=== PATIENT | male | born 1985 | race Caucasian/White ===

== ENCOUNTER 2025-02-05 17:48 | Emergency (ER) | payer OTHER, SELFPAY ==
[2025-02-05 17:49] VITALS: BP 169/94; PULSE 97; RESP 16; TEMP 36.8; O2SAT 100; BMI 32.1
--- NOTE | 2025-02-05 18:00 | RAD_ITS ---
PROCEDURE: RAD/Hand Min 3 Views
--- NOTE | 2025-02-05 18:17 | EX.ED.UPPERE ---
HPI History of Present Illness Chief Complaint: Upper Extremity Injury Detail of Chief Complaint: Patient presents with crush injury to his left index, long and ring finger Informant: patient Occured/Mechanism Mechanism/Context: Yes blunt trauma and Yes crush Comment: Work related injury Onset/Context/Timing Onset: Today and Hours Context: Sudden Onset Timing: Continuous Quality of Pain: - (No sensation in his 3 digits) Location: Left index, long and ring finger Current Severity: Moderate Maximum Severity: Moderate Worsened by: Nothing. No sensation Relieved by: Nothing Associated Symptoms Associated Symptoms: Positive for Parasthesia; Negative for Weakness or Loss of Funtion Narrative Narrative: Patient is a 39-year-old right hand dominant male. He presents with crush injury to his left index, long and ring finger proximal DIP joint of respective digits. Patient states he has no sensation. He states he is not able to move his fingers because he has no sensation. He has a small injury to the surface of the nail of his ring finger. He has no prior history of injury to the hand. Prior similar symptoms: No Recent Illness/Hospitalization: No PFSH PFSH Medical History no medical history no medical history Allergy/AdvReac Type Severity Reaction Status Date / Time No Known Allergies Allergy Verified 02/05/25 17:50 Surgical History no surgical history no surgical history Social History Smoking Status: Never smoker ROS ROS ED Integumentary Reports other Details: Skin is intact. ; Denies Abrasions or rash Neurologic Neurologic: Reports paresthesias LUE; Denies weakness Hematologic/Lymphatic Hematologic/Lymphatic: Denies easy bleeding or easy bruising EXAM Physical Exam Const Vital Signs: 02/05/25 17:49 Temperature 98.2 F Temperature Source Oral Pulse Rate 97 Respiratory Rate 16 Blood Pressure 169/94 H Blood Pressure Mean 119 Pulse Ox 100 Oxygen Delivery Method Room Air Positive well nourished and well developed General Appearance ED: well developed and NAD HEENT normocephalic and atraumatic Eyes PERRL and EOMs intact bilaterally Resp normal respiratory effort Cardio regular rate and regular rhythm Extremity Negative for normal to inspection or full ROM Extremity Narrative: Patient's skin is indented proximal DIP joint of his long and ring finger. There is a small scuffed of the nail of his ring finger. There is no subungual hematoma noted of any of his fingers. He states he has minimal movement because his fingers are numb. He has absolutely no sensation. Capillary fill is normal. Median, radial and ulnar function intact. He is able to extend his fingers. He has minimal flexion of this fingers. Neuro oriented x3, CN's II-XII intact bilaterally and No no sensory deficits noted Skin Skin Narrative: Indentation from the dramatic linsey. MDM MDM MDM Narrative Medical decision making narrative: Patient presents with crush injury due to pneumatic check to his left knee index, long and ring finger. Will obtain x-ray to evaluate for fracture. He has no sensation in his fingers suspect this is due to neuropraxia since there is no lacerations noted. Radiography Chest X-Ray - ED: Read by ED Physician (Three-view x-ray of his left hand reveals no evidence of fracture, subluxation dislocation. There is independently reviewed by me at [id number].) Treatment and Re-Evaluation Narrative: Patient was informed of results. Patient states his numbness may go away may partially go away or may be permanent. Would take 4 to 6 weeks to determine. Discharge Plan Triage Chief Complaint: Upper Extremity Injury ED Provider: Khris Holloway Dx/Rx/DC Orders Clinical Impression: Crushing injury of left index finger, initial encounter, Crushing injury of left middle finger, initial encounter, Crushing injury of left ring finger, initial encounter, Neuropraxia of left upper extremity Instructions: ED Crush Injury, Hand Primary Care Provider: Dannielle Mulligan Referrals: Corporate,Care [Group of Physicians, Medical] - 3-5 Days [facility] Doctor,Out of [Non-Staff, Medical] Activity Restrictions/Additional Instructions: May take 4 to 6 weeks for you to get sensation back in your fingers left hand. You may not have full recovery. Print Language: Cypriot Disposition Disposition: Home, Self Care
[2025-02-05 18:50] VITALS: BP 145/90; PULSE 88; RESP 16; TEMP 36.6; O2SAT 100
== END 2025-02-05 18:54 | disposition home or self-care (01) ==
PROVIDERS: Emergency Provider Emergency Medicine; PCP Family Medicine; Visit Provider Emergency Medicine
DX: S67.195A Crushing injury of left ring finger, initial encounter (principal); S67.191A Crushing injury of left index finger, initial encounter; S67.193A Crushing injury of left middle finger, initial encounter; S64.493A Injury of digital nerve of left middle finger, initial encounter; S64.495A Injury of digital nerve of left ring finger, initial encounter; S64.491A Injury of digital nerve of left index finger, initial encounter; W23.0XXA Caught, crushed, jammed, or pinched between moving objects, initial encounter
CPT/HCPCS: 73130; 99282